=== PATIENT | male | born 1960 | race Caucasian/White ===

== ENCOUNTER 2019-07-27 11:14 | Emergency (ER) | payer MEDICAID ==
[2019-07-27] MEDS ORDERED: Azithromycin 250 MG Tab ONE (11:30)
[2019-07-27 11:35] VITALS: BP 125/70; PULSE 94
--- NOTE | 2019-07-27 12:20 | EDM.PDOC ---
ED HPI GENERAL MEDICAL PROBLEM - General Chief Complaint: General Stated Complaint: POSSIBLE FLU Time Seen by Provider: 07/27/19 11:35 Source of Information: Reports: Patient History Limitations: Reports: No Limitations - History of Present Illness INITIAL COMMENTS - FREE TEXT/NARRATIVE: Kin states that he has been sick on and off for two weeks. Came in finally as he is tired of the malaise. Non-productive cough has increased over the last couple of days. No SOB or chest pain. Keeping hydrated. Sleeping poorly. No measures tried. Denies fever. Treatments CREATIVE TECHNOLOGIST: Reports: Other (see below) Other Treatments CREATIVE TECHNOLOGIST: NyQUIL and halls - Related Data Allergies Allergy/AdvReac Type Severity Reaction Status Date / Time No Known Drug Allergies Allergy Other Verified 02/15/14 19:34 Home Meds: Home Meds ALPRAZolam [Xanax] 0.5 mg PO TID 02/15/14 [History] Amiodarone [Cordarone] 400 mg PO BID 02/15/14 [History] Aspirin 81 mg PO DAILY 02/15/14 [History] Furosemide [Lasix] 80 mg PO DAILY 02/15/14 [History] Isosorbide Mononitrate [Imdur] 15 mg PO DAILY 02/15/14 [History] Mexiletine [Mexitil] 150 mg PO Q8H 02/15/14 [History] Midodrine 2.5 mg PO DAILY 02/15/14 [History] Nitroglycerin [Nitrostat] 0.4 mg PO DAILY PRN 02/15/14 [History] Potassium Chloride [Klor-Con M20] 20 meq PO DAILY 02/15/14 [History] Prasugrel [Effient] 10 mg PO DAILY 02/15/14 [History] atorvaSTATin [Lipitor] 40 mg PO BEDTIME 02/15/14 [History] carvediloL [Coreg] 13.5 mg PO BID 02/15/14 [History] lisinopriL [Prinivil] 2.5 mg PO DAILY 02/15/14 [History] Past Medical History Cardiovascular History: Reports: Automatic Implantable Cardioverter Defibrillators, ID, Pacemaker, Stents Other Cardiovascular History: ID 6 yrs ago August 2 stents placed 1 in and 1 in [place] Respiratory History: Reports: Other (See Below) Other Respiratory History: pt is on Amniodarone Social & Family History - Family History Family Medical History: Noncontributory - Tobacco Use Smoking Status *Q: Former Smoker Used Tobacco, but Quit: Yes Month/Year Tobacco Last Used: August Second Hand Smoke Exposure: No ED ROS GENERAL - Review of Systems Review Of Systems: See Below Constitutional: Reports: Malaise, Fatigue. Denies: Fever, Chills HEENT: Reports: No Symptoms Respiratory: Reports: Cough. Denies: Shortness of Breath, Wheezing, Pleuritic Chest Pain, Sputum Cardiovascular: Reports: No Symptoms GI/Abdominal: Reports: No Symptoms : Reports: No Symptoms Neurological: Reports: No Symptoms ED EXAM, GENERAL - Physical Exam Exam: See Below Exam Limited By: No Limitations General Appearance: Alert, WD/WN, No Apparent Distress Eye Exam: Bilateral Eye: EOMI, Normal Inspection, PERRL Ears: Normal External Exam Nose: Normal Inspection Throat/Mouth: Normal Inspection Head: Atraumatic, Normocephalic Neck: Normal Inspection, Supple, Non-Tender, Full Range of Motion Respiratory/Chest: No Respiratory Distress, Lungs Clear, Normal Breath Sounds Cardiovascular: No Gallop, No Murmur, No Rub GI/Abdominal: Soft, Non-Tender Extremities: Normal Inspection, Normal Range of Motion, Normal Capillary Refill Neurological: Alert, Oriented, Normal Gait, No Motor/Sensory Deficits Skin Exam: Warm, Dry, Intact Lymphatic: No Adenopathy Course - Vital Signs Last Recorded V/S: Last Vital Signs Temp 98.0 F 07/27/19 12:05 Pulse 94 07/27/19 12:05 Resp 16 07/27/19 12:05 BP 125/70 07/27/19 12:05 Pulse Ox 94 L 07/27/19 12:05 Departure - Departure Time of Disposition: 12:10 Disposition: Home, Self-Care 01 Clinical Impression: Cough - Discharge Information Instructions: Upper Respiratory Infection, Adult, [id number] Forms: ED Department Discharge Care Plan Goals: Take medications as prescribed. Return to hospital or clinic with any questions or concerns. May buy some OTC mucinex for congestion and cough. Sepsis Event Note - Evaluation Sepsis Screening Result: No Definite Risk - Focused Exam Vital Signs: Vital Signs Temp Pulse Resp BP Pulse Ox 07/27/19 12:05 98.0 F 94 16 125/70 94 L 07/27/19 11:33 98.0 F 94 16 125/70 94 L Date Exam was Performed: 07/27/19 Time Exam was Performed: 12:13 - Assessment/Plan Plan: Given patient preference and chronicity of symptoms, seems reasonable to cover with azithromycin. Work note provided and he will ensure rest and plenty of fluids. Return with any new, persistent, or worsening sx's
== END 2019-07-27 12:24 | disposition home or self-care (01) ==
LOC: LB.ED 11:14
DX: R05 Cough (principal); I25.2 Old myocardial infarction; Z87.891 Personal history of nicotine dependence; Z95.5 Presence of coronary angioplasty implant and graft; Z95.810 Presence of automatic (implantable) cardiac defibrillator; Z79.899 Other long term (current) drug therapy; Z79.82 Long term (current) use of aspirin
CPT/HCPCS: 87804; 99283; A9270

== ENCOUNTER 2024-07-16 18:25 | Emergency (ER) | payer MEDICAID ==
[2024-07-16] MEDS ORDERED: Sodium Chloride 0.9% 10 ML Syringe FLUSH PRN (18:26)
[2024-07-16 19:02] LABS: HEMATOCRIT 43.7 % (40.0-54.0); HEMOGLOBIN 14.8 g/dL (13.0-18.0); MEAN CORPUSCULAR HEMOGLOBIN 30.8 pg (27.0-32.0); MEAN CORPUSCULAR HGB CONC 33.9 g/dL (31.0-35.0); RED BLOOD CELL COUNT 4.81 M/uL (4.50-6.50); WHITE BLOOD CELL COUNT,WBC 7.4 K/uL (4.0-11.0)
[2024-07-16 19:18] LABS: ANION GAP 17.7 mmol/L (5.0-15.0); BUN/CREATININE RATIO 17.5 (6-25); CALCIUM 8.1 mg/dL (8.5-10.1); CARBON DIOXIDE,CO2 22.3 mmol/L (21.0-32.0); CREATININE 1.26 mg/dL (0.70-1.30); EST CRCL DRUG DOSING (CG) 60.01 mL/min; TROPONIN I HIGH SENSITIVITY 39.5 pg/ml (<=60.4)
[2024-07-16 21:44] VITALS: BP 140/74; PULSE 70
== END 2024-07-16 21:25 | disposition home or self-care (01) ==
LOC: LB.ED 18:25
DX: T82.897A Other specified complication of cardiac prosthetic devices, implants and grafts, initial encounter (principal); I25.2 Old myocardial infarction; Z95.0 Presence of cardiac pacemaker; Z95.5 Presence of coronary angioplasty implant and graft; Z79.899 Other long term (current) drug therapy; Z79.82 Long term (current) use of aspirin
CPT/HCPCS: 36415; 71045; 80048; 83735; 84100; 84484; 85027; 93005; 99284